=== PATIENT | female | born 1950 | race Caucasian/White ===

== ENCOUNTER → 2016-09-21 | Day surgery (SDC) | payer OTHER, MEDICARE ==
[~2016-09-21] VITALS: Ht 160 cm; Wt 61.2 kg
[~2016-09-21] MED LIST: ACETAMINOPHEN/H1 TAB PO; ASPIR 8181 MG PO; B12 1MG PE1000 MCG/M IM; BUDESONIDE3 MG PO; CARVEDILOL12.5 MG PO; CHOLESTYRAMINE1 POW PO; DIOVAN80 MG PO; FLU VACCINE 0.0.5 ML IM; HUMIRA (4040 MG/0.8 SC; LIDODERM 5% PAT1 PAT TOP; LOMOTIL 0.025 M1 TAB PO; MIRALAX17 GM PO; ONE DAILY WOMEN1 TAB PO; PANTOPRAZOLE SO40 MG PO; PRESERVISION AR1 SGL PO; TRAMADOL50 MG PO; VITAMIN B6200 MG PO; ZYRTEC ALLERGY10 MG PO
[2016-09-21 08:39] LABS: PT 18.6 SEC (9.4-12.5)
--- NOTE | 2016-09-21 09:13 | Operative Report ---
Operative/Inv Procedure Report Surgery Date: 09/21/16 Name of Procedure: Pacemaker generator change Pre-Operative Diagnosis: End of battery life Post-Operative Diagnosis: same Estimated Blood Loss: scant Surgeon/Television Mechanic: RODRIGUEZ WHITE MD Anesthesia: moderate sedation Monitors: Tely IV Fluids: none Implants: new generator Urine Output: not measured Drains: none Specimens: old generator Microbiology: none Tourniquet: none Complications: none Condition: stable Operative Indication: End of battery life Operative/Procedure Note Note: Informed consent obtained. Patient was brought to OR in a fasting state. Time out performed. Moderate sedation provided by aneshesia. Skin was infiltrated with 1% lidocaine. Incision was made over the old generator. Using dull and sharp dissection pacer pocket was enter and old generator was removed. Pacer leads were tested. (V lead threshold was 0.5, Impedance 711, R wave none, A lead threshold 0.75, impedance 480, p wave 2.5). New generator was attached to the leads and screws were tightened. Pocket flushes with atb solution. Generator was introduced to the pocket and closed with 3 layers of Vicryl. Wound covered with steri strips and Tegaderm dressing. Patient was brought to same day surgery in stable condition. No complications. Findings: none Discharge Disposition: home
== END ==
LOC: STS 01:08
PROVIDERS: Internal Medicine Cardiovascular Disease
DX: Z45.018 Encounter for adjustment and management of other part of cardiac pacemaker (principal); I25.10 Atherosclerotic heart disease of native coronary artery without angina pectoris; I42.9 Cardiomyopathy, unspecified; I73.9 Peripheral vascular disease, unspecified; Z95.4 Presence of other heart-valve replacement; I10 Essential (primary) hypertension; Z79.01 Long term (current) use of anticoagulants; I48.91 Unspecified atrial fibrillation
CPT/HCPCS: 36415; C1785; J0690; J2250

== ENCOUNTER 2017-10-20 11:52 | Emergency (ER) | payer OTHER, MEDICARE ==
[~2017-10-20] VITALS: Ht 162.6 cm; Wt 65.8 kg
[2017-10-20 13:16] LABS: ABSOLUTE BASOPHIL COUNT 0.1 /CUMM (0.0-0.2); ABSOLUTE EOSINOPHIL COUNT 0.3 /CUMM (0.0-0.7); ABSOLUTE GRANULOCYTE CT 3.1 /CUMM (1.4-6.5); ABSOLUTE LYMPH COUNT 1.6 /CUMM (1.2-3.4); ABSOLUTE MONOCYTE COUNT 0.7 /CUMM (0.10-0.60); BASOPHIL % 0.9 % (0.0-2.0); EOSINOPHIL % 4.8 % (0-5); GRANULOCYTE % 53.4 % (42.2-75.2); HEMATOCRIT 30.2 % (37-47); MEAN CORPUSCULAR HGB 34.2 PG (27.0-31.0); MEAN CORPUSCULAR HGB CONC 33.2 G/DL (33.0-37.0); MEAN CORPUSCULAR VOLUME 102.8 FL (81.0-99.0); MEAN PLATELET VOLUME 9.3 FL (7.4-10.4); PLATELET COUNT 191 /CUMM (130-400); RBC DISTRIBUTION WIDTH 12.4 % (11.5-14.5); RED BLOOD CELL CT 2.94 /CUMM (4.20-5.40); WHITE BLOOD CELL COUNT 5.7 /CUMM (4.8-10.8)
[2017-10-20 13:22] LABS: PT 29.2 SEC (9.4-12.5)
[2017-10-20 16:26] VITALS: BP 156/92
--- NOTE | 2017-10-20 16:53 | RADIOLOGY REPORT ---
EXAMINATION: XR HAND, LEFT CLINICAL INFORMATION: Left thumb pain after trauma COMPARISON: Left hand 05/25/2015 TECHNIQUE: PA, lateral, and oblique views of the left hand. FINDINGS: There is no acute adenopathy. There is no fracture and no dislocation. 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 There is significant joint space narrowing with erosions and marginal bone spur of the DIP joint of the index and middle finger with less severe degenerative changes of the DIP joints of the ring and fifth finger and the IP joint of the thumb. There is marked joint space narrowing and subchondral sclerosis and spurring of the first metacarpal carpal joint. There is mild joint narrowing between the navicular bone and the multangular bones without significant spur or erosion. IMPRESSION: 1. No acute abnormality. 2. Degenerative change of erosive osteoarthritis.
--- NOTE | 2017-10-20 16:56 | ED HAND/WRIST INJURY COMPLAINT ---
History of Present Illness General Chief Complaint: Laceration Procedure Stated Complaint: L THUMB +LAC ON DOOR, PT ON BLOOD THINNERS Source: patient Exam Limitations: no limitations Vital Signs & Intake/Output Vital Signs & Intake/Output Vital Signs Date Time Temp Pulse Resp B/P B/P Pulse O2 O2 Flow FiO2 Mean Ox Delivery Rate 10/20 1626 98.0 83 18 156/92 100 Room Air 10/20 1303 97.6 61 18 133/74 61 Room Air Allergies Coded Allergies: Opioids - Morphine Analogues (Intermediate, NAUSEA 09/20/16) lactose (Mild, INTOLERANT 09/21/15) Reconcile Medications adalimumab (Humira) 40 MG/0.8 ML SYRINGEKIT 40 MG SC Q2W CROHNS (Reported) EVERY OTHER SUNDAY Ascorbic Acid/Copper/Vitamin (Preservision Areds) 14,320-226 SGL 2 SGL PO DAILY SUPPLEMENT (Reported) Aspirin (Ecotrin) 81 MG TABLET.DR 1 TAB PO DAILY HEART HEALTH (Reported) Budesonide (Budesonide EC) 3 MG CAPDR...ER 2 CAP PO DAILY CROHNS (Reported) Carvedilol 12.5 MG TABLET 1 TAB PO BID HEART HEALTH (Reported) CETIRIZINE HCL (Zyrtec) 10 MG CAPSULE 1 CAP PO DAILY ALLERGIES (Reported) Cholestyramine (Cholestyramine Resin) 1,000 GM POWDER 1 PAC PO BID CROHNS ( Reported) Cyanocobalamin (Cyanocobalamin Injection) 1,000 MCG/ML VIAL 1 ML IM Q30D VIT B -12 (Reported) DIPHENOXYLATE HCL/ATROPINE (Lomotil 2.5-0.025 MG Tablet) 2.5 MG-0.025 MG TABLET 1 TAB PO PRN DIARRHEA (Reported) Lidocaine HCl (Lidoderm Patch) 5 % PAT 1 PAT TOP DAILY BACK PAIN may wear up to 12 hours Pantoprazole Sodium 40 MG TABLET.DR 1 TAB PO BID ACID REFLUX (Reported) Polyethylene Glycol 3350 (Miralax) 17 GM PWD 17 GM PO DAILY PRN CONSTIPATION mix with water, juice, soda, coffee or tea [id number] (One Daily Women's) 1 TAB TAB 1 TAB PO DAILY SUPPLEMENT ( Reported) Pyridoxine (Vitamin B6) 200 MG TAB 1 TAB PO DAILY SUPPLEMENT (Reported) TRAMADOL HCL (Tramadol) 50 MG TAB 1 TAB PO Q6P PRN BACK PAIN Valsartan (Diovan) 80 MG TAB 1 TAB PO DAILY BP (Reported) Triage Note: 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 PT STATES SHE IS ON BLOOD THINNERS AND IT WONT STOP BLEEDING. PT HAS TO GO FOR [place] ON SUNDAY PT/INR. Triage Nurses Notes Reviewed? yes Occurred: just prior to arrival Duration: hour(s): (2), better, continues in ED Timing: single episode today Injury Environment: home Severity: mild, moderate Severity Numbers: 5 Pain/Injury Location: Left: 1st finger. Context: blow Method of Injury: direct blow No Modifying Factors: none LMP (ages 10-50): unknown : No Patient currently breastfeeds: No HPI: 67-year-old female past medical history of mitral valve repair on Coumadin presents for evaluation of a laceration to her left thumb. Patient states that she closed her left thumb in a screen door causing a laceration to the distal aspect of the thumb. She reports that she is on Coumadin and it was bleeding excessively. She was unable to the bleeding to stop. She denies any lightheadedness dizziness chest pain shortness of breath or any other symptoms. She does report some pain with movement of the thumb. No damage to the nail. No numbness or tingling. (Reinier Kee) Past History Travel History Traveled to [place] past 21 day No Medical History Any Pertinent Medical History? see below for history Neurological: NEURALGIA Cardiovascular: MITRO VALVUE PROBLEMS Gastrointestinal: Crohn's disease Musculoskeletal: osteoporosis History of MRSA: No History of VRE: No History of CDIFF: No Pneumonia Vaccine: 04/19/10 Influenza Vaccine: 04/08/14 Surgical History Surgical History: non-contributory Psychosocial History Who do you live with Spouse Services at Home None What is your primary language Serbian Tobacco Use: Never used ETOH Use: denies use Illicit Drug Use: denies illicit drug use, UTD Family History Family History, If Any: Relation not specified for: *No pertinent family history Hx Contributory? No (Reinier Kee) Review of Systems Review of Systems Constitutional: Reports: no symptoms. EENTM: Reports: no symptoms. Respiratory: Reports: no symptoms. Cardiovascular: Reports: no symptoms. GI: Reports: no symptoms. Genitourinary: Reports: no symptoms. Musculoskeletal: Reports: see HPI, joint pain. Skin: Reports: see HPI (LACERATION). Neurological/Psychological: Reports: no symptoms. Hematologic/Endocrine: Reports: no symptoms. Immunologic/Allergic: Reports: no symptoms. All Other Systems: Reviewed and Negative (Reinier Kee) Physical Exam Physical Exam General Appearance: well developed/nourished, no apparent distress, alert, awake Head: atraumatic, normal appearance Eyes: Bilateral: normal appearance, PERRL, EOMI. Ears, Nose, Throat: normal pharynx, normal ENT inspection, hearing grossly normal Neck: normal inspection, supple, full range of motion Cardiovascular/Respiratory: normal breath sounds, normal peripheral pulses, regular rate/rhythm, no respiratory distress Back: normal inspection, normal range of motion Elbow Left: normal range of motion, normal inspection Elbow Right: normal range of motion, normal inspection Forearm Left: normal range of motion, normal inspection Forearm Right: normal range of motion, normal inspection Wrist Left: normal range of motion, normal inspection Wrist Right: normal range of motion, normal inspection Hand Left: lacerations, 1st finger, THERE IS A 0.5 CM LINEAR SUPERFICIAL LACERATION TO THE LATERAL NAIL FOLD ON THE DORSAL ASPECT OF THE THUMB. tHERE IS SMALL AMOUNT OF ACTIVE BLEEDING. fULL RANGE OF MOTION OF THUMB IS INTACT THERE IS SOME MILD TENDERNESS OF THE INTERPHALANGEAL JOINTS. nO BRUISING SWELLING AND ABRASIONS rEFILL LESS THAN 2 SECONDS Hand Right: normal inspection, normal range of motion Neurologic/Tendon: normal sensation, normal motor functions, normal tendon functions, responds to pain, no evidence tendon injury, no pulse deficit Skin: intact, normal color, warm/dry Lymphatic: no anterior cervical ramona (Reinier Kee) Progress Differential Diagnosis: contusion, dislocation, fracture, paronychia, septic arthritis, sprain, tenosynovitis Diagnostic Imaging: Viewed by Me: Radiology Read. Discussed w/RAD: Radiology Read. Radiology Impression: PATIENT: VENKATESH DEGROOT PRESENT AGE: 67 PATIENT ACCOUNT NO: [id number] : 49 LOCATION: [facility] ORDERING PHYSICIAN: Reinier JACK SERVICE DATE: 10/20/17 EXAM TYPE: RAD - XRY- HAND, LEFT EXAMINATION: XR HAND, LEFT CLINICAL INFORMATION: Left thumb pain after trauma COMPARISON: Left hand 05/25/2015 TECHNIQUE: PA, lateral, and oblique views of the left hand. FINDINGS: There is no acute adenopathy. There is no fracture and no dislocation. 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 There is significant joint space narrowing with erosions and marginal bone spur of the DIP joint of the index and middle finger with less severe degenerative changes of the DIP joints of the ring and fifth finger and the IP joint of the thumb. There is marked joint space narrowing and subchondral sclerosis and spurring of the first metacarpal carpal joint. There is mild joint narrowing between the navicular bone and the multangular bones without significant spur or erosion. IMPRESSION: 1. No acute abnormality. 2. Degenerative change of erosive osteoarthritis. DICTATED BY: Jadiel Gates MD DATE /TIME DICTATED:10/20/171645 HISTOPATHOLOGY TECHNICIAN:ALAINA DATE/TIME TRANSCRIBED: 10/20/171645 CONFIDENTIAL, DO NOT COPY WITHOUT APPROPRIATE AUTHORIZATION. (Boogie JACK,Reinier) Plan of Care: Orders Procedure Date/time Status PROTHROMBIN TIME 10/20 1308 Complete CBC WITHOUT DIFFERENTIAL 10/20 1308 Complete Current Medications Sig/Nba Start time Last Medication Dose Stop Time Status Admin Tetanus/Diphtheria 0.5 ML ONCE ONE 10/20 1714 AC 10/20 Toxoids Adsorbed 10/21 1715 1707 (Decavac) Laboratory Tests 10/20/17 1305: PT 29.2 H, INR 2.65 H, CBC w Diff NO MAN DIFF REQ, RBC 2.94 L, MCV 102.8 H, MCH 34.2 H, MCHC 33.2, RDW 12.4, MPV 9.3, Gran % 53.4, Lymphocytes % 28.7, Monocytes % 12.2 H, Eosinophils % 4.8, Basophils % 0.9, Absolute Granulocytes 3.1, Absolute Lymphocytes 1.6, Absolute Monocytes 0.7 H, Absolute Eosinophils 0.3, Absolute Basophils 0.1 Patient seen and evaluated. She has a 0.5 cm facial laceration to the lateral aspect of the distal left thumb. Small amount of active bleeding present. PT/ INR is therapeutic at 2.6. May blood work is unchanged. The wound was cleaned and Surgicel sterile dressing was applied. Good hemostasis achieved. Discussed wound care procedures with patient. Keep the area clean and dry. [place] for signs of infection. Follow-up with primary care doctor in a few days for a recheck monitor symptoms return with any concerns. Case discussed with Dr. Jimenez he agrees. Tetanus updated. (Reinier Kee) (Julio Cesar Jimenez MD) Departure Departure Disposition: HOME OR SELF CARE Condition: Stable Clinical Impression Primary Impression: Thumb laceration Qualifiers: Encounter type: initial encounter Damage to nail status: without damage Foreign body presence: without foreign body Laterality: left Qualified Code: S61.012A - Laceration without foreign body of left thumb without damage to nail, initial encounter Referrals: Ar Wilkinson MD (PCP/Family) Additional Instructions: Keep the area clean and dry. Change dressing once daily. Tylenol as needed for pain. [place] for signs of infection like redness swelling discharge or pain. Make a follow-up with A primary care doctor in a few days for recheck. Monitor symptoms return with any concerns. Departure Forms: Customer Survey General Discharge Information (Reinier Kee) PA/TERRITORY MANAGER Co-Sign Statement Statement: ED Attending supervision documentation- [x] I saw and evaluated the patient. I have also reviewed all the pertinent lab results and diagnostic results. I agree with the findings and the plan of care as documented in the PA's/TERRITORY MANAGER's documentation. [] I have reviewed the ED Record and agree with the PA's/TERRITORY MANAGER's documentation. [] Additions or exceptions (if any) to the PAs/TERRITORY MANAGER's note and plan are summarized below: [] (Barbara TOLLIVER,Julio Cesar Murillo)
== END 2017-10-20 17:11 ==
LOC: ERH 11:52
PROVIDERS: Emergency Medicine
DX: S61.012A Laceration without foreign body of left thumb without damage to nail, initial encounter (principal); W23.0XXA Caught, crushed, jammed, or pinched between moving objects, initial encounter; Y92.009 Unspecified place in unspecified non-institutional (private) residence as the place of occurrence of the external cause; Z79.01 Long term (current) use of anticoagulants
CPT/HCPCS: 73130-LT; 90471